=== PATIENT | male | born 1975 | race Caucasian/White ===

== ENCOUNTER 2023-10-27 19:05 | Emergency (ER) | payer OTHER ==
[2023-10-27] MEDS: Take Home: Doxycycline 100 MG Cap, 4 Cap Pack PO ONE (19:42)
== END 2023-10-27 19:50 | disposition home or self-care (01) ==
LOC: DL.ED 19:05
DX: L73.9 Follicular disorder, unspecified (principal)
CPT/HCPCS: 99283; A9270-GY